=== PATIENT | female | born 1950 | race Caucasian/White ===

== ENCOUNTER 2022-07-16 00:26 | Emergency (ER) | payer MEDICARE, SELFPAY ==
[2022-07-16] VITALS (13 sets, daily range): BP systolic 167–215; BP diastolic 76–110; PULSE 66–105; RESP 16–18; TEMP 36.6–36.8; O2SAT 90–98; BMI 30.9
--- NOTE | 2022-07-16 00:33 | CT_ITS ---
PROCEDURE INFORMATION: Exam: CT Abdomen And Pelvis With Contrast Exam date and time: 07/16/2022 1:26 AM Age: 71 years old Clinical indication: Abdominal pain; Patient HX: PT states HX of cdiff, had episode of diarrhea that was similar to when she had cdiff TECHNIQUE: Imaging protocol: Computed tomography of the abdomen and pelvis with contrast. Radiation optimization: All CT scans at this facility use at least one of these dose optimization techniques: automated exposure control; mA and/or kV adjustment per patient size (includes targeted exams where dose is matched to clinical indication); or iterative reconstruction. Contrast material: ISOVUE; Contrast volume: 75 ml; Contrast route: IV; REPORTING DATA: Count of CT and Cardiac NM exams in prior 12 months: This patient has received 0 known CTs and 0 known cardiac nuclear medicine studies in the 12 months prior to the current study. COMPARISON: No relevant prior studies available. FINDINGS: Lungs: There is mild multifocal bibasilar lung scarring. Liver: Multiple hepatic and splenic calcifications are identified. Gallbladder and bile ducts: Normal. No calcified stones. No ductal dilation. Pancreas: Normal. No ductal dilation. Spleen: See Liver finding. Adrenal glands: Normal. No mass. Kidneys and ureters: Multiple bilateral renal cysts are identified. Stomach and bowel: There is no bowel obstruction. There is abnormal thickening of the wall of the sigmoid colon and part of the ascending colon. There is mild diverticulosis. Appendix: No evidence of appendicitis. Intraperitoneal space: Unremarkable. No free air. No significant fluid collection. Vasculature: There is heavy atherosclerotic disease. 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 Lymph nodes: Unremarkable. No enlarged lymph nodes. Urinary bladder: Unremarkable as visualized. Reproductive: The patient is status post hysterectomy. Bones/joints: Old bilateral rib fractures are noted. Soft tissues: Unremarkable. IMPRESSION: 1. Findings suspicious for colitis involving the sigmoid colon and ascending colon. 2. 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 3. Hepatic and splenic calcifications suggestive of prior granulomatous disease. COMMENTS: Consistent with the [employer]'s Incidental Findings Committee white paper (J Am Buddy Radiol 2018): Any incidental renal lesion less than 1 cm or classified as too small to characterize, or any incidental cystic renal lesion characterized as simple-appearing, is likely benign. No follow-up imaging is recommended for these lesions per consensus recommendations based on imaging criteria.
--- NOTE | 2022-07-16 00:33 | XR_ITS ---
PROCEDURE INFORMATION: Exam: XR Chest Exam date and time: 07/16/2022 1:53 AM Age: 71 years old Clinical indication: Pain; Other: Upper abd; Prior surgery; Additional info: Epigastic pain TECHNIQUE: Imaging protocol: Radiologic exam of the chest. Views: 1 view. COMPARISON: CT ABDOMEN PELVIS W CON 07/16/2022 1:26 AM FINDINGS: Lungs: Unremarkable. No consolidation. Pleural spaces: Unremarkable. No pleural effusion. No pneumothorax. Heart/Mediastinum: Unremarkable. No cardiomegaly. Bones/joints: The patient is status post median sternotomy. IMPRESSION: No evidence of acute pulmonary process.
--- NOTE | 2022-07-16 00:37 | HMH.EDABDPAI ---
Discharge Plan Disposition Patient Disposition: Xfer Other Condition: Fair Clinical Impressions Clinical Impression: Colitis Discharge ED Provider: Suzie Grullon Abdominal Pain HPI General Chief Complaint: Abdominal Pain Stated Complaint: ABD Pain Time Seen by Provider: 07/16/22 00:30 Mode of Arrival: EMS Source of Information: Patient Limitations: No Limitations History of Present Illness HPI narrative: Patient is a 71-year-old female who is here secondary to severe lower abdominal pain. Patient's complaint severe lower abdominal pain off-and-on since this morning. She has a known history of C. difficile colitis. This is would be her third bout with C diff per patient and finish 2 weeks of vancomycin 2 times just finished antibiotic last week. Not a cramping a lot of pain. Patient's had nausea but no vomiting. Patient's not had any blood in the stool. She has had no urgency frequency burning on urination. Patient has had some fevers and chills. complaint: abdominal pain Onset (ago): hour(s) Consistency: constant Location: suprapubic Severity: moderate Severity scale (1-10): 8 Quality: cramping and stabbing Radiation: LLQ and RLQ Migration to: LLQ and RLQ Relieving factors: nothing Exacerbating factors: nothing Context: history of similar episodes Associated symptoms: nausea, diarrhea, fever and chills Related Data LMP (females 10-50): unknown Allergies Allergy/AdvReac Type Severity Reaction Status Date / Time ibuprofen Allergy Verified 07/16/22 00:47 ketorolac [From Toradol] Allergy Verified 07/16/22 00:47 Penicillins Allergy Verified 07/16/22 00:47 [facility] Disclaimer: The information contained in this section may have been updated after the patient was seen, as this information can be updated by other users. Social History Smoking Status: Never smoker alcohol intake: never current occupational status: retired Travel in the last 8 weeks: Inside the [place] ROS Obtained: Yes All systems reviewed & no additional complaints except as documented Gastrointestinal Gastrointestingal: Reports cramping, diarrhea, loose stools and nausea Physical Exam General General appearance: alert and in distress Head Head exam: atraumatic, normocephalic and normal inspection Eye Eye exam: Present normal appearance, PERRL and EOMI; Absent scleral icterus or conjunctival redness ENT ENT exam: Present normal exam, normal oropharynx and mucous membranes dry; Absent mucous membranes moist Neck Neck exam: Present normal inspection, full ROM and trachea midline Chest Chest inspection: Present normal inspection and symmetric chest wall rise Respiratory Respiratory exam: Present normal lung sounds bilaterally Cardiovascular Cardiovascular exam: Present regular rate, normal rhythm, normal heart sounds, +S1 and +S2 Abdominal Exam Abdominal exam: Present soft, tenderness and normal bowel sounds; Absent distention, guarding, rebound or rigidity Extremities Exam Extremities exam: Present normal inspection, full ROM and normal capillary refill; Absent tenderness Back Exam Back exam: Present normal inspection and full ROM; Absent tenderness, CVA tenderness (R) or CVA tenderness (L) Neurological Exam Neurological exam: Present alert, oriented X3 and normal gait; Absent motor sensory deficit Psychiatric Psychiatric exam: Present normal affect and normal mood Skin Skin exam: Present warm, dry, intact and normal color Medical Decision Making Medical Records Medical records reviewed: Yes I reviewed the patient's medical records. Spencer Inquiry Pt receiving controlled substance: No Spencer was queried for this patient: No Vital Signs: 07/16/22 00:43 07/16/22 01:00 07/16/22 02:00 Temperature 98.2 F Temperature Source Oral Pulse Rate 93 H 79 Pulse Rate [Apical] 105 H Respiratory Rate 18 Blood Pressure 188/96 H 168/81 H Blood Press
[2022-07-16 00:48] LABS: Microscopic, Urine URINE MICROSCOPIC (MICROSCOPIC)
[2022-07-16 00:50] LABS: Appearance,Urine CLEAR (Clear); Blood, Urine Negative (Negative); Color,Urine YELLOW (Yellow); Glucose,Urine (UA) Negative (Negative); Ketones,Urine Negative (Negative); Leukocyte Esterase,Urine Negative (Negative); Nitrate,Urine Negative (Negative); Protein,Urine TRACE (Negative); Specific Gravity, Urine 1.025 (1.005-1.030); Urobilinogen,Urine 0.2 EU/dl (0.2)
[2022-07-16 00:51] LABS: Bilirubin,Urine Negative (Negative)
[2022-07-16 00:52] LABS: Occult Blood,Stool Positive (Negative)
[2022-07-16 01:01] LABS: Basophils # 0.1 K/mm3 (0-0.2); Basophils % 0.3 % (0.1-2.0); Eosinophils # 0.7 K/mm3 (0.0-0.4); Eosinophils % 1.9 % (0.1-12.0); Hematocrit 47.7 % (37.0-47.0); Hemoglobin 14.9 g/dL (12.2-16.2); Lymphocytes # 1.3 K/mm3 (0.7-4.5); Lymphocytes % 3.5 % (10-50); Mean Corpuscular HGB Conc 31.2 g/dL (31.8-35.4); Mean Corpuscular Hemoglobin 25.5 pg (27.0-31.2); Mean Corpuscular Volume 81.8 fl (81-99); Mean Platelet Volume 8.3 fl (7.4-10.4); Monocytes # 1.1 K/mm3 (0.1-1.0); Monocytes % 3.1 % (1.7-9.3); Neutrophils # 33.1 K/mm3 (1.8-7.8); Platelet Count 448 K/mm3 (142-424); Red Blood Count 5.83 M/mm3 (4.20-5.40); Red Cell Distribution Width 17.8 % (11.5-17.5); White Blood Count 36.4 K/mm3 (4.8-10.8)
--- NOTE | 2022-07-16 01:05 | ECG_ITS ---
APPROVED REPORT Exam: Resting ECG HR:87 bpm ECG Measurements Heart Rate 87 AXES NV 120 P -61 QRSd 126 QRS -85 QT 383 T 83 QTc 428 Conclusion JUNCTIONAL RHYTHM RIGHT BUNDLE BRANCH BLOCK [120+ ms QRS DURATION, UPRIGHT V1, 40+ ms S IN I/aVL/V4/V5/V6] LEFT ANTERIOR FASCICULAR BLOCK [QRS AXIS <= -45, QR IN I, RS IN II] LEFT VENTRICULAR HYPERTROPHY AND ST-T CHANGE [VOLTAGE CRITERIA PLUS ST/T ABNORMALITY] POSSIBLE SEPTAL MYOCARDIAL INFARCTION , OF INDETERMINATE AGE [30 ms Q WAVE IN V1/V2] ABNORMAL ECG UNCONFIRMED REPORT Electronically signed by : Ramón Puente MD 07/16/2022 09:32:14
[2022-07-16 01:06] LABS: Lactic Acid 1.5 mmol/L (0.7-2.1)
[2022-07-16 01:07] LABS: Alanine Aminotransferase 20 U/L (12-78); Albumin/Globulin Ratio 1.2 (1.1-1.8); Alkaline Phosphatase 105 U/L (38-126); Anion Gap 9.6 mEq/L (5-15); Aspartate Amino Transferase 24 U/L (14-36); Bilirubin,Total 0.9 mg/dl (0.2-1.3); Blood Urea Nitrogen 14 mg/dl (7-17); Calcium 9.1 mg/dl (8.4-10.2); Carbon Dioxide 24 mmol/L (22.0-30.0); Chloride 102 mmol/L (98-107); Creatinine Clearance Estimated 58 mL/min (50-200); Estimated Glomerular Filt Rate 49 ml/min (>60); GFR (African American) 59 ML/MIN (>60); Globulin 3.4 g/dL (1.3-3.2); Glucose 163 mg/dl (74-100); Lipase 76 U/L (23-300); Potassium 3.6 mmoL/L (3.5-5.1); Sodium 132 mmol/L (136-145); Total Protein,Serum 7.4 g/dl (6.3-8.2)
[2022-07-16 01:08] LABS: Activated Partial Thrombo Time 29.6 seconds (22.8-30.6); INR 1.06 (0.9-1.1); Prothrombin Time 11.4 seconds (10.1-12.5)
[2022-07-16 01:14] LABS: MANUAL DIFFERENTIAL MANUAL DIFFERENTIAL (MANUAL DIFF)
[2022-07-16 01:18] LABS: Creatine Kinase < 20 U/L (30-135)
[2022-07-16 01:24] LABS: Creatine Kinase MB < 0.2 ng/ml (0.0-2.03); Troponin I < 0.01 ng/ml (0.00-0.034)
[2022-07-16 01:39] LABS: Bacteria,Urine 1+ /lpf
[2022-07-16 01:57] LABS: Eosinophils % 1 % (0-3); Lymphocytes % 6 % (10-50); Monocytes % 4 % (2-9); Neutrophils % 88 % (42-76); Total Cells Counted 100
[2022-07-16 01:58] LABS: Platelet Estimate Normal; RBC Morphology Normal
--- NOTE | 2022-07-16 03:38 | PC.NURSE ---
ER speaking with [place] at this time
--- NOTE | 2022-07-16 03:41 | PC.NURSE ---
Patient is accepted at [facility] to .
--- NOTE | 2022-07-16 04:03 | PC.NURSE ---
[facility] called to update ED staff. patient will be accepted there but it will have to wait until after 0700 due to staffing issues.
--- NOTE | 2022-07-16 07:04 | PC.NURSE ---
Called [facility] for pt transfer, they stated the transport truck will be here at 8am
--- NOTE | 2022-07-16 07:23 | PC.NURSE ---
Jonn called with bed change. [address] [facility], [facility]. #[phone]
--- NOTE | 2022-07-16 07:55 | PC.NURSE ---
Report given to MINOO Gonzalez
--- NOTE | 2022-07-16 08:03 | PC.NURSE ---
Case Management notified re:pre-authorization of transport.
[2022-07-17 18:09] LABS: C difficile Toxins AB, EIA Positive (Negative)
[2022-07-18 01:14] LABS: Peripheral Smear Review Scanned Result
== END 2022-07-16 09:01 | disposition other institution (70) ==
PROVIDERS: Emergency Provider Emergency Medicine; PCP Family Medicine
DX: K52.9 Noninfective gastroenteritis and colitis, unspecified (principal); R10.9 Unspecified abdominal pain
CPT/HCPCS: 51702; 71045; 74177; 80053; 81001; 82272; 82550; 82553; 83605; 83690; 84484; 85007; 85025; 85610; 85730; 87045; 87205; 87324; 93005; 96374; 96375; 96376; 99285; G0328; J0131; J2405; Q9967